=== PATIENT | female | born 1990 | race African-American/Black ===

== ENCOUNTER 2018-04-04 14:26 | Emergency (ER) | payer OTHER, MEDICAID ==
[~2018-04-04] VITALS: Ht 165.1 cm; Wt 71.2 kg
[2018-04-04] MEDS ORDERED: DEPO-PROVE150 MG/1 M IM (14:45)
[2018-04-04] MEDS ORDERED: ABILIFY MAINTE300 M1 IM (14:45)
[2018-04-04 15:06] LABS: URINE BILIRUBIN NEGATIVE (Negative); URINE BLOOD TRACE (Negative); URINE COLOR YELLOW; URINE GLUCOSE-RANDOM NEGATIVE (Negative); URINE KETONES TRACE (Negative); URINE NITRITE-REFLEX NEGATIVE (Negative); URINE PROTEIN TRACE (Negative); URINE SPECIFIC GRAVITY >= 1.030 (1.005-1.030); URINE UROBILINOGEN 0.2 E.U./dl (0.2-1.0)
[2018-04-04 15:15] LABS: URINE CLARITY HAZY; URINE LEUKOCYTES-REFLEX 2+ (Negative)
[2018-04-04 15:16] LABS: CASTS None Seen /LPF (None Seen); CRYSTALS None Seen /LPF (None Seen); MUCUS >6 Heavy strn/LPF (None Seen); SQUAMOUS >10 Many /LPF (0-3); URINE RBC 3-10 Few /HPF (0-2); URINE WBC-REFLEX 6-15 Few /HPF (0-5)
[2018-04-04] MEDS ORDERED: FLAGYL500 MG PO (15:26)
[2018-04-04] MEDS ORDERED: DOXYCYCLINE 10100 MG PO (15:26)
[2018-04-04 15:36] VITALS: BP 127/75
== END 2018-04-04 15:37 | disposition home or self-care (01) ==
LOC: M.ERS 14:26
PROVIDERS: Nurse Practitioner Family
DX: N73.9 Female pelvic inflammatory disease, unspecified (principal); A59.00 Urogenital trichomoniasis, unspecified; F41.9 Anxiety disorder, unspecified; J45.909 Unspecified asthma, uncomplicated; Z86.2 Personal history of diseases of the blood and blood-forming organs and certain disorders involving the immune mechanism

== ENCOUNTER 2018-06-02 14:35 | Emergency (ER) | payer OTHER, MEDICAID ==
[~2018-06-02] VITALS: Ht 165.1 cm; Wt 70.0 kg
[~2018-06-02 14:35] MED LIST: ABILIFY MAINTE300 M1 IM; DEPO-PROVE150 MG/1 M IM; DOXYCYCLINE 10100 MG PO; FLAGYL500 MG PO
[2018-06-02 15:03] LABS: URINE BILIRUBIN NEGATIVE (Negative); URINE BLOOD TRACE (Negative); URINE CLARITY CLEAR; URINE COLOR YELLOW; URINE GLUCOSE-RANDOM NEGATIVE (Negative); URINE KETONES NEGATIVE (Negative); URINE NITRITE-REFLEX NEGATIVE (Negative); URINE PROTEIN NEGATIVE (Negative); URINE UROBILINOGEN 0.2 E.U./dl (0.2-1.0)
[2018-06-02 15:05] LABS: URINE LEUKOCYTES-REFLEX 3+ (Negative)
[2018-06-02 15:06] LABS: ABSOLUTE BASOPHILS 0.1 thou/uL (0.0-0.2); ABSOLUTE EOSINOPHILS 0.3 thou/uL (0.0-0.7); ABSOLUTE LYMPHOCYTES 3.1 thou/uL (0.8-5.3); ABSOLUTE MONOCYTES 0.6 thou/uL (0.0-1.2); ABSOLUTE NEUTROPHILS 4.6 thou/uL (1.6-8.1); BASOPHILS 0.8 %; HEMATOCRIT 38.5 % (37.0-47.0); HEMOGLOBIN 12.3 gm/dL (12.0-15.0); LYMPHOCYTES 36.3 %; MCH 21.9 pg (26.0-34.0); MCHC 32.1 g/dL (28.0-37.0); MCV 68.3 fL (80.0-100.0); MONOCYTES 6.7 %; MPV 9.5 fl. (7.2-11.1); NUCLEATED RBCS 0 /100WBC; PLATELET COUNT* 193 thou/uL (150-400); POLYS 53.2 %; RBC 5.63 mil/uL (4.20-5.00); RDW-CV 15.6 % (10.5-14.5); WBC 8.6 thou/uL (4.0-11.0)
[2018-06-02 15:08] LABS: AMP/METHAMP Negative (Negative); BARBITURATES Negative (Negative); BENZODIAZEPINES Negative (Negative); COCAINE POSITIVE (Negative); METHADONE Negative (Negative); OPIATES Negative (Negative); PCP Negative (Negative); THC Negative (Negative)
[2018-06-02 15:09] LABS: SQUAMOUS >10 Many /LPF (0-3)
[2018-06-02 15:10] LABS: CASTS None Seen /LPF (None Seen); CRYSTALS None Seen /LPF (None Seen); URINE RBC 0-2 Rare /HPF (0-2)
[2018-06-02 15:20] LABS: ANION GAP 4 mmol/L (7-16); BUN 8 mg/dL (7-18); CALCIUM 8.1 mg/dL (8.5-10.1); CHLORIDE 107 mmol/L (98-107); CO2 27 mmol/L (21-32); CREATININE 1.1 mg/dL (0.6-1.3); GLUCOSE 86 mg/dL (70-99); POTASSIUM 3.5 mmol/L (3.5-5.1); SODIUM 138 mmol/L (136-145)
[2018-06-02 15:27] LABS: ALBUMIN 3.1 g/dL (3.4-5.0); ALKALINE PHOSPHATASE 78 U/L (46-116); SGOT 12 U/L (15-37); SGPT 14 U/L (30-65); TOTAL BILIRUBIN 0.3 mg/dL (<0.1-1.0); TOTAL PROTEIN 6.5 g/dL (6.4-8.2); TROPONIN-I LEVEL <0.06 ng/mL (<0.06)
[2018-06-02] MEDS ORDERED: BACTRIM DS TAB1 EACH PO (15:40)
[2018-06-02 15:41] LABS: PLATELET ESTIMATE ADEQUATE
[2018-06-02 15:42] LABS: MICROCYTES 1+
[2018-06-02 15:43] LABS: ANISOCYTOSIS 1+
[2018-06-02 15:53] VITALS: BP 113/65
--- NOTE | 2018-06-03 12:57 | EKG ---
[place] [address] ELECTROCARDIOGRAM REPORT Name: ABDI WINTERS Room: [facility]#: [id number] Admission: 06/02/18 Attend Phys: Discharge: 06/02/18 Date of : 89 Report #: [id number] THIS REPORT FOR: //name// [facility] ED Test Date: 2018-06-02 Test Time: 14:40:03 Pat Name: ABDI WINTERS Department: Room: Gender: F Business Systems Administrator: WILFRED : 1990 Requested By: Lindsey Pride Order Number: [id number] MD: Jason Joel Measurements Intervals [place] Rate: 70 P: 62 IN: 116 QRS: 63 QRSD: 81 T: 26 QT: 352 QTc: 380 Interpretive Statements Sinus rhythm Borderline short IN interval No previous ECG available for comparison Electronically Signed On 06-03-2018 12:57:15 CDT by Jason Joel [email or web address] <ELECTRONICALLY SIGNED> By: Jason Joel MD, FACC 06/03/18 1257 1440 1440 Jason Joel MD, FACC /EPI
== END 2018-06-02 15:54 | disposition home or self-care (01) ==
LOC: M.ERS 14:35
PROVIDERS: Nurse Practitioner Family
DX: N73.9 Female pelvic inflammatory disease, unspecified (principal); A59.01 Trichomonal vulvovaginitis; N39.0 Urinary tract infection, site not specified; F41.9 Anxiety disorder, unspecified; J45.909 Unspecified asthma, uncomplicated; Z86.2 Personal history of diseases of the blood and blood-forming organs and certain disorders involving the immune mechanism; Z79.899 Other long term (current) drug therapy